=== PATIENT | male | born 1935 | race Caucasian/White ===

== ENCOUNTER 2018-08-31 14:25 | Outpatient (CLI) | payer MEDICARE | END 2018-08-31 23:59 | disposition home or self-care (01) | LOC: CVU 14:25 | PROVIDERS: ATTEND Nurse Practitioner Family | DX: I08.3 Combined rheumatic disorders of mitral, aortic and tricuspid valves (principal); I10 Essential (primary) hypertension; I48.91 Unspecified atrial fibrillation | CPT/HCPCS: 93306 ==

== ENCOUNTER 2018-11-09 12:16 | Outpatient (CLI) | payer MEDICARE | END 2018-11-09 23:59 | disposition home or self-care (01) | LOC: CFH 12:16 | PROVIDERS: ATTEND Internal Medicine Cardiovascular Disease | DX: Z01.818 Encounter for other preprocedural examination (principal); I48.91 Unspecified atrial fibrillation; M41.84 Other forms of scoliosis, thoracic region | CPT/HCPCS: 71046; 82565 ==